=== PATIENT | male | born 1990 | race Caucasian/White ===

== ENCOUNTER 2017-05-30 14:37 | Emergency (ER) | payer SELFPAY ==
[~2017-05-30] VITALS: Ht 185.4 cm; Wt 81.8 kg
[~2017-05-30 14:37] MED LIST: BENADRYL25 MG PO; ERYTHROMYC1 APPLICAT LEFT EYE; ERYTHROMYC1 APPLICAT RIGHT EYE; INDOCIN25 MG PO; LORTAB 5-325 M1 EACH PO; NORCO 7.5/321 TABLET PO; ULTRAM50 MG PO; ZANTAC150 MG PO; ZOFRAN ODT4 MG PO
[2017-05-30] MEDS ORDERED: KEFLEX500 MG PO (16:34)
[2017-05-30 16:49] VITALS: BP 127/67
== END 2017-05-30 16:50 | disposition home or self-care (01) ==
LOC: EME 14:37
PROC: 0HQGXZZ Repair Left Hand Skin, External Approach (ICD-10-PCS; principal; 2017-05-30)
DX: S62.667B Nondisplaced fracture of distal phalanx of left little finger, initial encounter for open fracture (principal); W23.0XXA Caught, crushed, jammed, or pinched between moving objects, initial encounter; Y99.0 Civilian activity done for income or pay; F17.200 Nicotine dependence, unspecified, uncomplicated
CPT/HCPCS: 73130; 99281; 99284